=== PATIENT | male | born 1965 | race Caucasian/White ===

== ENCOUNTER 2018-01-01 09:56 | Inpatient (IN) | payer BC ==
[2018-01-01 11:28] LABS: Absolute Lymphocytes (CBC) 2.3 K/uL (0.7-4.9); Absolute Monocytes 0.7 K/uL (0.1-1.3); Absolute Neutrophil 5.9 K/uL (1.8-8.0); Basophils % 0.5 % (0-1.3); Eosinophils % 3.9 % (0-4.4); Hematocrit 49.6 % (39.6-49.0); Lymphocytes % 24.5 % (15.3-44.8); MCH 30.8 pg (27.0-35.0); MCV 90.1 fL (80-100); Monocytes % 7.7 % (3.3-12.3); RBC Red Blood Cell Count 5.51 M/uL (4.33-5.43)
[2018-01-01] MEDS: levoFLOXacin 500 MG TAB PO SCH (12:45)
[2018-01-01 12:57] LABS: ALT/SGPT 18 IU/L (10-60); AST/SGOT 17 IU/L (10-42); Albumin 4.2 g/dL (3.2-5.5); Alkaline Phosphatase 86 IU/L (42-121); BUN Blood Urea Nitrogen 9 mg/dL (6-20); Bicarbonate 27 mEq/L (21-31); Bilirubin Total 0.4 mg/dL (0.3-1.2); C-Reactive Protein 5.2 mg/L (<10.0); Glucose Level 254 mg/dL (65-120); Potassium 4.3 mEq/L (3.6-5.0); Protein, Total 7.5 g/dL (6.0-8.3); Sodium Level 135 mEq/L (135-145)
[2018-01-01 14:42] VITALS: BMI 23.8
[2018-01-01] MEDS: VANCOMYCIN 1.25 GM in NA CHLORIDE 0.9% 250 ML IVPB SCH (15:45)
[2018-01-01] MEDS ORDERED: SODIUM CHLORIDE 0.9% 10ML INJ IV PRN (16:06)
[2018-01-01] MEDS ORDERED: D50W 25 GM/50 ML SYRINGE IV PRN ×2 (16:07→16:28)
[2018-01-01] MEDS ORDERED: GLUCAGON 1 MG/VIAL IM PRN ×2 (16:07→16:28)
[2018-01-01] MEDS ORDERED: INSULIN -REGULAR HUMAN 50 UNIT/0.5 ML ML SQ SCH (16:30)
[2018-01-01] MEDS: INSULIN -REGULAR HUMAN 50 UNIT/0.5 ML ML SQ SCH ×2 (16:30→20:45)
--- NOTE | 2018-01-01 16:40 | P.CNS ---
Date of Consult: 01/01/18 HPI: This is a 52-year-old male with significant past medical history of hypertension, hyperlipidemia, diabetes who presented to the hospital directly from orthopedic surgeon's office for bursitis. Patient has a poor procedure scheduled here in the hospital. Given the complete conditions medicine team was called to manage his chronic morbidities. Patient today states that he overall feels better. Patient states that he has not been taking any medications for his high blood pressure as it has been under control. Patient has not been taking his hyperlipidemia medications either because his cholesterol was also under control last time he checked with his primary care doctor. Patient takes a in shots once a week for his diabetes and he had his shots on Sunday by his primary care provider. No other complaints to offer at this time. PE: General: NAD, AAOx 3 CVS: RRR, No murmer Resp: CTABL, No w/r/r MS: Knee Swelling, +Pulse Neuro: + reflex, CN 2-12 intact Lab: 01/01/18 11:04: Sodium 135, Potassium 4.3, Chloride 102, Carbon Dioxide 27, BUN 9, Creatinine 0.83, Estimated GFR > 90, Glucose 254 H, Calcium 9.3, Total Bilirubin 0.4, AST 17, ALT 18, Alkaline Phosphatase 86, C-Reactive Protein 5.2, Serum Total Protein 7.5, Albumin 4.2, Globulin 3.3, Albumin/Globulin Ratio 1.3 01/01/18 11:04: ESR W[place]gren 1 01/01/18 11:04: WBC 9.2, RBC 5.51 H, Hgb 17.0, Hct 49.6 H, MCV 90.1, MCH 30.8, MCHC 34.2, RDW 13.0, Plt Count 293, MPV 9.0, Neutrophils % 63.4, Lymphocytes % 24.5, Monocytes % 7.7, Eosinophils % 3.9, Basophils % 0.5, Absolute Neutrophils 5.9, Absolute Lymphocytes 2.3, Absolute Monocytes 0.7, Absolute Eosinophils 0.4 , Absolute Basophils 0.0 Assessment/Plan: 1. Bursitis: Ortho primary. OR procedure rosalino afternoon 2. DMtype 2 - Insulin sliding scale. BS goal of 150-200 3. HTN- Currently stable 4. HLP- Currently stable GI/DVT PPX: protonix and Hold lovenox for procedure rosalino.
[2018-01-01] MEDS ORDERED: HOME MED 1 EA UNK (Gabapentin [Neurontin] 600 MG) PO SCH (17:00)
[2018-01-01] MEDS: GABAPENTIN 300 MG CAP PO SCH ×2 (17:16→20:43)
--- NOTE | 2018-01-02 00:36 | HP ---
Date of Admission: 01/01/2018 Chief Complaint: Left arm pain and swelling. History Of Present Illness: Mr. Yi is a diabetic patient who started having pain and problems r elated to his left arm. This was treated conservatively by other medical insurance claims processor, but he came to see me in my office. At that time, he had a significant amount of redness related to his left elb ow as well as a swollen olecranon bursa. We discussed treatment options at that time, including admi ssion to the hospital, aspiration, and antibiotics. He said he would like to try aspiration antibiot ics; and aspiration of the olecranon bursa was performed, which revealed some slightly cloudy and blo od-tinged fluid. This was sent to the lab for assessment for crystals, none of which were seen. Als o, it was sent for Gram stain and culture. Gram stain demonstrated gram-negative bacilli and gram-po sitive cocci. However, cultures did not return with any organisms. He was initially treated with Ba ctrim. He came to see me in my office, and he had had some improvement; however, I reviewed his cult ures and placed him also on ciprofloxacin. He then arrived to see me back in my office, and he reall y had not had any significant improvement, although he definitely had not worsened. We discussed wit h his family at that time perhaps admission to the hospital would be advised. They elected to do sharon t tomorrow, and he is now admitted. On x-rays, he does have olecranon spur and also has some degener ative changes of the elbow; however, there is no sign of osteomyelitis or other problems. Admission labs demonstrate a white blood cell count of 9.2, glucose of 254, and sedimentation rate of 1. Physical Examination: On physical examination, he is normocephalic and atraumatic, and no other abnormalities are detected with the exception of his left elbow which demonstrates a large swelling with slight erythema and larisa e pain with palpation. He is otherwise neurovascularly intact. Medications: For his previous medications, please see list. Assessment: Assessment is to admit to the hospital for IV antibiotics. Also, we will consult the spitalist. We will plan on n.p.o. after midnight. Probable open bursal excision, irrigation and katerin ridement tomorrow. Risks, benefits, and alternatives of this have been discussed with the patient. He states he understands everything as presented and wishes to proceed. RIVERA Voice ID: [id number]
[2018-01-02] MEDS: VANCOMYCIN 1.25 GM in NA CHLORIDE 0.9% 250 ML IVPB SCH ×2 (02:33→16:11)
[2018-01-02] MEDS: INSULIN -REGULAR HUMAN 50 UNIT/0.5 ML ML SQ SCH ×4 (07:30→21:00)
[2018-01-02] MEDS: GABAPENTIN 300 MG CAP PO SCH ×4 (09:11→21:41)
[2018-01-02] MEDS: levoFLOXacin 500 MG TAB PO SCH (09:11)
[2018-01-02] MEDS: PANTOPRAZOLE 40 MG INJ IVP SCH (09:11)
[2018-01-02 10:39] LABS: Urine Appearance CLEAR; Urine Bilirubin NEGATIVE (NEG); Urine Color YELLOW; Urine Glucose 3+ (NEG); Urine Specific Gravity 1.015 (1.005-1.030)
[2018-01-02 10:40] LABS: Urine Blood NEGATIVE (NEG); Urine Microscopic Reflex NO UMIC; Urine Protein NEGATIVE (NEG); Urine Urobilinogen 0.2 mg/dL (0.2-1.0); Urine pH 5.5 (5.0-7.0)
[2018-01-02] MEDS ORDERED: NA CHLORIDE 0.9% 1,000 ML ONE (12:34)
[2018-01-02] MEDS ORDERED: PROPOFOL 200 MG/20 ML VIAL IV ONE (12:53)
[2018-01-02] MEDS ORDERED: FENTANYL CITR 100 MCG/2 ML ONE (12:54)
[2018-01-02] MEDS ORDERED: LIDOCAINE 1% MPF 5 ML VIAL ONE (12:54)
[2018-01-02] MEDS ORDERED: MIDAZOLAM HCL 2 MG/2 ML INJ ONE (12:54)
[2018-01-02] MEDS ORDERED: MORPHINE 10 MG/ML VIAL ONE (14:34)
[2018-01-02] MEDS ORDERED: ONDANSETRON 4 MG/2 ML VIAL ONE (14:36)
[2018-01-02] MEDS ORDERED: KETOROLAC 30 MG/ML INJ ONE (14:36)
--- NOTE | 2018-01-02 15:08 | P.BOP ---
Preoperative diagnosis: left septic olecraon bursitis Postoperative diagnosis: same Primary procedure: left olecranon bursectomy with irrigation and sharp debridement Estimated blood loss: 20ccs Findings: as above Anesthesia: General Transferred to: Recovery Room Condition: Good
[2018-01-02] MEDS: MEPERIDINE HCL 50 MG/ML AMP ONE ×2 (15:24→15:29)
--- NOTE | 2018-01-02 16:34 | P.CNS ---
S: Pt doing well overall. No c/o overnight. awaiting Surgical procedure. PE: General: NAD, AAOx 3 CVS: RRR, No murmer Resp: CTABL, No w/r/r MS: Knee Swelling, +Pulse Neuro: + reflex, CN 2-12 intact Lab: 01/02/18 07:20: Urine Color Yellow, Urine Appearance Clear, Urine pH 5.5, Ur Specific [place] 1.015, Urine Ketones Negative, Urine Blood Negative, Urine Nitrite Negative, Urine Bilirubin Negative, Urine Urobilinogen 0.2, Ur Leukocyte Esterase Negative, Urine Glucose 3+, Urine Total Protein Negative Assessment/Plan: 1. Bursitis: Ortho primary. OR procedure rosalino afternoon 2. DMtype 2 - Insulin sliding scale. BS goal of 150-200 3. HTN- Currently stable 4. HLP- Currently stable GI/DVT PPX: protonix and Hold lovenox for procedure rosalino.
[2018-01-02] MEDS: HYDROCODONE/APAP 5/325 MG TAB PO PRN (21:41)
--- NOTE | 2018-01-03 01:14 | OP ---
Date of Procedure: 01/02/2018 Surgeon: Anup Solorzano MD Preoperative Diagnosis: Left elbow septic olecranon bursitis. Postoperative Diagnosis: Left elbow septic olecranon bursitis. Procedure Performed: Left elbow irrigation and debridement with bursectomy, leaving it open. Estimated Blood Loss: 20 cc. Complications: There were no complications. Specimens: There was a pathology specimens sent as well as culture specimen sent. Indications For Operation: Mr. Yi is a patient who arrived to see me. He has already had quite a bit of time treating his olecranon which had been quite swollen consistent with olecranon bursitis . At that time, he had not made any significant decreases in his condition, but was not progressing well. He had an aspiration which demonstrated gram-positive cocci and gram-negative rods. However, the cultures did not demonstrate any bacteria. Also, there were no crystals in the fluid. He has be en treated with ciprofloxacin as well as Bactrim and essentially has not made any meaningful improvem ent. So, he does have a slight amount of decrease in erythema and pain. He was, therefore, admitted yesterday for IV antibiotics. He was started on vancomycin. White blood cell count was normal, and sedimentation rate was 1. However, at this time, it is deemed appropriate to pursue bursectomy with irrigation and debridement. All risks, benefits, and alternatives to this have been discussed with the patient. He states he understands things as presented and wishes to proceed. Description Of Procedure: The patient was taken to the operating room and placed in supine position. General anesthesia was obtained by staff. Following this, there were some pillows laid over his ab domen, and his left upper extremity was then prepped and draped in the usual sterile fashion. Follow ing this, the incision was marked out, and the arm was elevated, but not exsanguinated, and tournique t was raised. It was then laid gently over his stomach with a small bump under his arm to allow for visualization. A standard incision, which was slightly lateral to the olecranon, was then taken down carefully through skin only. Meticulous hemostasis was being maintained using Bovie electrocautery. This proceeded up to the most proximal aspect of the bursa. This was then shelled off from a dista l lateral position down to a proximal lateral position, essentially bringing this across slightly pas t the midline. After this, extreme care was taken on the medial aspect where this was shelled out fr om the medial distal portion and brought back. Great care was taken around the ulnar nerve, and meti culous hemostasis was maintained. The bursa was then removed. Combination of curette and rongeur wa s then used to remove any nonviable-appearing tissue. The arm was then copiously irrigated with 2 L of sterile saline. This was followed by dropping of the tourniquet and controlling hemostasis with B ovie. These typically will ooze from nearly everywhere. However, following the use of the Bovie, so me pressure was applied, and there was found to be no significant bleeding. A moistened Kerlix was t hen placed within the wound bed, and it was then covered with 3 ABDs. This was followed by placement of soft roll, followed by a posterior splint. The patient was then awakened and taken to recovery r oom in good condition. /ALBERTA Voice ID: [id number] Report ID: [id number]
[2018-01-03] MEDS: VANCOMYCIN 1.25 GM in NA CHLORIDE 0.9% 250 ML IVPB SCH ×2 (03:35→14:35)
[2018-01-03] MEDS: HYDROCODONE/APAP 5/325 MG TAB PO PRN ×5 (03:48→22:51)
[2018-01-03] MEDS: INSULIN -REGULAR HUMAN 50 UNIT/0.5 ML ML SQ SCH ×4 (07:30→21:00)
[2018-01-03] MEDS: levoFLOXacin 500 MG TAB PO SCH (09:05)
[2018-01-03] MEDS: PANTOPRAZOLE 40 MG INJ IVP SCH (09:05)
[2018-01-03] MEDS: GABAPENTIN 300 MG CAP PO SCH ×4 (09:05→21:20)
--- NOTE | 2018-01-03 14:01 | P.CNS ---
Date of Consult: 01/03/18 S: Pt doing well overall. No c/o overnight. awaiting Surgical procedure rosalino. PE: General: NAD, AAOx 3 CVS: RRR, No murmer Resp: CTABL, No w/r/r MS: Knee Swelling, +Pulse Neuro: + reflex, CN 2-12 intact Lab: 01/02/18 07:20: Urine Color Yellow, Urine Appearance Clear, Urine pH 5.5, Ur Specific [place] 1.015, Urine Ketones Negative, Urine Blood Negative, Urine Nitrite Negative, Urine Bilirubin Negative, Urine Urobilinogen 0.2, Ur Leukocyte Esterase Negative, Urine Glucose 3+, Urine Total Protein Negative Assessment/Plan: 1. Bursitis: Ortho primary. OR procedure rosalino afternoon 2. DMtype 2 - Insulin sliding scale. BS goal of 150-200 3. HTN- Currently stable 4. HLP- Currently stable GI/DVT PPX: protonix and Hold lovenox for procedure rosalino.
[2018-01-04] MEDS: VANCOMYCIN 1.25 GM in NA CHLORIDE 0.9% 250 ML IVPB SCH ×2 (02:44→15:18)
--- NOTE | 2018-01-04 02:53 | PN ---
Date of Progress Note: 01/03/2018 The patient is seen today. His dressing is clean, dry, and intact, although he did have 2 episodes o f bleed through. Currently, it is without any sign of further or continued drainage. His hand is ne urovascularly intact. His otherwise pain is under control. At this point, we will have him n.p.o. a fter midnight and we will proceed with irrigation and debridement, probable closure tomorrow. He sta judy he understands everything is presented and all of his questions have otherwise been answered benita lancaster SE/ALBERTA Voice ID: [id number] Report ID: [id number]
[2018-01-04] MEDS: HYDROCODONE/APAP 5/325 MG TAB PO PRN ×3 (05:37→23:53)
[2018-01-04] MEDS: INSULIN -REGULAR HUMAN 50 UNIT/0.5 ML ML SQ SCH ×4 (07:30→21:36)
[2018-01-04] MEDS: PANTOPRAZOLE 40 MG INJ IVP SCH (09:01)
[2018-01-04] MEDS: GABAPENTIN 300 MG CAP PO SCH ×4 (09:01→21:36)
[2018-01-04] MEDS: levoFLOXacin 500 MG TAB PO SCH (09:01)
--- NOTE | 2018-01-04 09:47 | P.CNS ---
S: Pt doing well overall. No c/o overnight. awaiting Surgical procedure today. pt was downstairs smoking. Smoking cessation provided PE: General: NAD, AAOx 3 CVS: RRR, No murmer Resp: CTABL, No w/r/r MS: Knee Swelling, +Pulse Neuro: + reflex, CN 2-12 intact Lab: BS range between 150-200 at goal for now. Assessment/Plan: 1. Bursitis: Ortho primary. OR procedure rosalino afternoon 2. DMtype 2 - Insulin sliding scale. BS goal of 150-200 3. HTN- Currently stable 4. HLP- Currently stable GI/DVT PPX: protonix and Hold lovenox for procedure today.
[2018-01-04] MEDS ORDERED: NA CHLORIDE 0.9% 1,000 ML ONE (11:43)
[2018-01-04] MEDS ORDERED: PROPOFOL 200 MG/20 ML VIAL IV ONE (12:28)
[2018-01-04] MEDS ORDERED: LIDOCAINE 1% MPF 30 ML VIAL ONE (12:28)
[2018-01-04] MEDS ORDERED: MIDAZOLAM HCL 2 MG/2 ML INJ ONE (12:28)
[2018-01-04] MEDS ORDERED: FENTANYL CITR 100 MCG/2 ML ONE (12:28)
[2018-01-04] MEDS ORDERED: ONDANSETRON 4 MG/2 ML VIAL ONE (13:44)
--- NOTE | 2018-01-04 13:55 | P.BOP ---
Preoperative diagnosis: left septic olecraon bursitis after bursectomy Postoperative diagnosis: same Primary procedure: left second look irrigation and sharp debridement with closure over drain Estimated blood loss: 20ccs Transferred to: Recovery Room Condition: Good
[2018-01-04] MEDS ORDERED: MEPERIDINE HCL 25 MG/0.5 ML ONE (14:13)
[2018-01-04] MEDS ORDERED: MEPERIDINE HCL 50 MG/ML AMP ONE (14:20)
[2018-01-04 23:38] VITALS: O2SAT 100
--- NOTE | 2018-01-05 01:43 | OP ---
Date of Procedure: 01/04/2018 Surgeon: Anup Solorzano MD Postoperative Diagnosis: Left elbow status post bursectomy and irrigation and debridement, now with open wound. Postoperative Diagnosis: Left elbow status post bursectomy and irrigation and debridement, now with open wound. Procedure: Left elbow irrigation and sharp debridement including skin and subcutaneous tissue with c losure with drains. Estimated Blood Loss: 20 cc. Complications: There were no complications. Specimen: No pathology specimen sent. Indications For Operation: Mr. Yi is a 52-year-old gentleman who came to see me in my office wi olecranon bursitis. Please refer to his previous indications for more detailed indications. Toda y is a second-look irrigation and debridement to ensure that there is no purulent or necrotic tissue with probable closure. Description Of Procedure: The patient was taken to the operating room and placed in supine position. General anesthesia was obtained by staff. Following this, he was then rolled right side down on a levine bag with an axillary roll along with bony prominences being checked by Anesthesia. Following th is, his left upper extremity was then prepped and draped in the usual sterile fashion for the procedu re. A sterile tourniquet was placed on his left superior arm. The arm was then elevated, but not ex sanguinated, and tourniquet was raised. Following this, jet lavage was used for 2 L of sterile salin e irrigation, which clears the wound bed. There was found to be some clotted blood; however, there w as no purulent material. No sign of any loculation of any abscess, appeared to be early granulation tissue and everything appeared to be viable with the exception of a small amount over the olecranon, which was debrided using a rongeur, also a very small amount at the margins of the wound with some de bridement of some skin, but other than that, it appeared to be exceptionally clear and clean. Anothe r 2 L sterile saline were then used to irrigate. The tourniquet was then dropped and any bleeding wa s controlled using Bovie electrocautery. This followed by placement of medium Hemovac drain and clos ure of skin using nylon sutures. The patient was then placed in an extremely well-padded sterile soha ssing as well as a posterior splint and taken to the recovery room in good condition. There were no complications. SE/MODL Voice ID: [id number] Report ID: [id number]
[2018-01-05] MEDS: VANCOMYCIN 1.25 GM in NA CHLORIDE 0.9% 250 ML IVPB SCH (02:46)
[2018-01-05] MEDS: HYDROCODONE/APAP 5/325 MG TAB PO PRN (04:48)
[2018-01-05] MEDS: INSULIN -REGULAR HUMAN 50 UNIT/0.5 ML ML SQ SCH ×2 (07:30→11:30)
[2018-01-05 09:05] VITALS: TEMP 97.5
[2018-01-05] MEDS: PANTOPRAZOLE 40 MG INJ IVP SCH (09:08)
[2018-01-05] MEDS: GABAPENTIN 300 MG CAP PO SCH (09:08)
[2018-01-05] MEDS: levoFLOXacin 500 MG TAB PO SCH (09:08)
[2018-01-05 15:23] VITALS: BP 138/91
== END 2018-01-05 12:20 | disposition home or self-care (01) | DRG 502 ==
LOC: 2ND 10:35
PROVIDERS: ADMIT Orthopaedic Surgery; ATTEND Orthopaedic Surgery
PROC: 0JQH0ZZ Repair Left Lower Arm Subcutaneous Tissue and Fascia, Open Approach (ICD-10-PCS; 2018-01-04)
PROC: 0J9H00Z Drainage of Left Lower Arm Subcutaneous Tissue and Fascia with Drainage Device, Open Approach (ICD-10-PCS; 2018-01-04)
PROC: 0MB40ZZ Excision of Left Elbow Bursa and Ligament, Open Approach (ICD-10-PCS; principal; 2018-01-04 12:30)
DX: M70.22 Olecranon bursitis, left elbow (principal); I10 Essential (primary) hypertension; E78.5 Hyperlipidemia, unspecified; E11.9 Type 2 diabetes mellitus without complications
CPT/HCPCS: 36415; 80053; 80202; 81003; 82962; 85025; 85652; 86140; 87070; 87075; 87205; 88304; C9113; J2175; J2250; J2405; J3010; J7030